=== PATIENT | female | born 1980 | race Caucasian/White ===

== ENCOUNTER 2021-12-05 09:41 | Emergency (ER) | payer MEDICAID ==
[~2021-12-05] VITALS: Ht 162.6 cm; Wt 63.5 kg
[2021-12-05 10:00] VITALS: BP_SYST 110
--- NOTE | 2021-12-05 10:00 | NUR ---
Patient to ER bed 3 to gown for evaluation. Side rails up. Report given to FADUMO JOHNSON.
--- NOTE | 2021-12-05 10:05 | NUR ---
PT CAME IN FROM [facility] C/O WOKE UP WITH EYES "GLUED SHUT", BILATERAL EYE REDNESS IRRITATION AND DISCHARGE, DENIES VISUAL CHANGES. PT IS AMBULATORY, AAOX4, VSS
[2021-12-05] MEDS ORDERED: TETRACAINE HCL/PF 0.5% OPHTHALMIC DROPS 4 ML OP ONE (10:15)
[2021-12-05] MEDS ORDERED: FLUORESCEIN SODIUM 1 MG OPHTHALMIC STRIP OP ONE (10:15)
--- NOTE | 2021-12-05 10:30 | NUR ---
FIRST CONTACT WITH PT. PT REPORTS SHE WOKE UP TODAY UNABLE TO OPEN BOTH EYES. REPORTS EYES ARE BURNING. DENIES GETTING ANYTHING IN HER EYES. NO DRAINAGE. DENIES VISUAL CHANGES.
--- NOTE | 2021-12-05 10:45 | NUR ---
ER at bedside examining patient.
[2021-12-05] MEDS ORDERED: PROP10DR2 EACH EYE (12:04)
[2021-12-05] MEDS ORDERED: CIPR5DRO BOTH EYES (12:04)
--- NOTE | 2021-12-05 12:30 | NUR ---
Patient given written and verbal discharge instructions and verbalizes understanding. ER MD discussed with patient the results and treatment provided. Patient in stable condition. ID arm band removed. Rx of CILOXAN,SYSTANE EYE DROP given. Patient educated on pain management and to follow up with PMD. Pain Scale 0 Opportunity for questions provided and answered. Medication side effect fact sheet provided.
== END 2021-12-05 12:30 | disposition home or self-care (01) ==
LOC: SED 09:41
DX: H10.33 Unspecified acute conjunctivitis, bilateral (principal); Z79.899 Other long term (current) drug therapy
CPT/HCPCS: 99283